=== PATIENT | male | born 1995 | race Caucasian/White ===

== ENCOUNTER → 2016-10-09 | Outpatient (CLI) | payer BC ==
--- NOTE | 2016-10-09 13:53 | DIAGNOSTIC IMAGING REPORT ---
RIGHT INJECTION SHOULDER PRE MRI CLINICAL HISTORY: 20-year-old male with history of internal impingement, suspected superior labral anterior to posterior tear, overhead throwing athlete. COMPARISON: Fluoroscopic right shoulder injection from 05/13/2015 and MRI from 05/13/2015. PROCEDURE: After obtaining written informed consent, the patient was placed supine on the fluoroscopy table. A suitable site for needle insertion was marked using fluoroscopic guidance. The right shoulder was prepped and draped in the usual sterile fashion. 1% lidocaine was used for skin, subcutaneous and deep soft tissue anesthesia. Under intermittent fluoroscopic guidance, a 22 gauge 2.5 inch spinal needle was inserted into the right glenohumeral joint. A total of 10 cc of one-to-one mixture of dilute Gadavist (0.1 cc in 10 cc saline) and Optiray 300 were injected. The needle was then removed. There were no apparent complications. The patient was transported to for further imaging. Fluoroscopy dosage (mGy): Not available. Fluoroscopy time: 18 seconds. Number of fluoroscopic spot images: 0. IMPRESSION: Fluoroscopic-guided right shoulder arthrogram without immediate complication. Total injected volume was 10 cc. MR portion of the examination will be dictated separately. Electronically signed by: Andry Smith M.D. 10/09/2016 1:51 PM Dictated Date/Time: 10/09/2016 1:49 PM
--- NOTE | 2016-10-09 14:41 | DIAGNOSTIC IMAGING REPORT ---
POST ARTHROGRAM MRI THE RIGHT SHOULDER. CLINICAL HISTORY: Right shoulder pain. COMPARISON STUDY: 05/13/2015 FINDINGS: Imaging was performed following a gadolinium arthrogram. Imaging was performed the sagittal coronal and axial planes. There are no areas of marrow edema to indicate occult fracture or bone bruise. The bicipital tendon appears normal. There is no evidence of ligamentous disruption. There is mild thickening and minimal increased signal within the supraspinatus insertion consistent with a mild tendinopathy. This remains unchanged the prior study. No tears of the posterior glenoid labrum are visualized. There is a tiny structure abutting the anterior glenoid labrum. This remains unchanged the prior study. An intrinsic ligament is favored over a tiny anterior labral tear IMPRESSION: 1. Persistent mild supraspinatus tendinopathy 2. No evidence of full-thickness rotator cuff tear 3. Stable minimal irregularity of the anterior glenoid labrum. An adjacent intrinsic ligament is favored over a tiny anterior labral tear. Electronically signed by: Chris Bentley M.D. 10/09/2016 2:40 PM Dictated Date/Time: 10/09/2016 2:24 PM
== END | disposition home or self-care (01) ==
LOC: C.MRIBC 12:47
PROVIDERS: ATTEND Orthopaedic Surgery
DX: S43.431A Superior glenoid labrum lesion of right shoulder, initial encounter (principal); X58.XXXA Exposure to other specified factors, initial encounter